=== PATIENT | female | born 1980 | race African-American/Black ===

== ENCOUNTER 2022-08-07 15:43 | Emergency (ER) | payer MEDICAID ==
[~2022-08-07] VITALS: Ht 167.6 cm; Wt 113.7 kg
[2022-08-07 15:59] VITALS: O2SAT 98
[2022-08-07] MEDS ORDERED: KETOROLAC 30MG/ML VIAL IM ONE (16:45)
[2022-08-07 17:14] LABS: BASOPHILS % 0.6 % (0.0-2.0); EOSINOPHILS % 0.8 % (0.0-5.0); HEMATOCRIT. 37.9 % (36.0-48.0); HEMOGLOBIN. 13.2 g/dL (12.0-16.0); LYMPHOCYTES % 39.2 % (20.0-50.0); MEAN CORPUSCULAR HEMOGLOBIN 30.9 pg (28.0-32.0); MEAN CORPUSCULAR VOLUME 88.9 fL (81.0-99.0); MEAN PLATELET VOLUME 7.4 fl (7.4-10.4); MONOCYTES % 5.3 % (2.0-8.0); NEUTROPHILS % 54.1 % (40.0-76.0); PLATELET 455 x1000/uL (130-400); RED BLOOD CELL COUNT 4.27 mill/uL (4.2-5.4); RED CELL DISTRIBUTION WIDTH 13.9 % (11.6-14.6)
[2022-08-07 17:17] LABS: CHLORIDE 105 mEq/L (98-107)
[2022-08-07] MEDS ORDERED: IBUP-2029 MT (18:21)
[2022-08-07 18:39] VITALS: BP 145/92; PULSE 101; RESP 20; TEMP 99.4
== END 2022-08-07 19:00 | disposition home or self-care (01) ==
LOC: ER 15:43
DX: M25.571 Pain in right ankle and joints of right foot (principal); M79.89 Other specified soft tissue disorders; J45.909 Unspecified asthma, uncomplicated
CPT/HCPCS: 99284; 80048; 81025; 84550; 85025; 36415; 73610; 73630; 96372; J1885